=== PATIENT | male | born 1990 | race Caucasian/White ===

== ENCOUNTER 2017-12-25 00:36 | Emergency (ER) | payer BC ==
[~2017-12-25] VITALS: Ht 180.3 cm; Wt 86.4 kg
[~2017-12-25 00:36] MED LIST: ADDERALL30 MG PO; BACTRIM DS 8001 TAB PO; CEPHALEXIN500 M1 PO; DOXYCYCLINE 10100 MG PO; NORCO 325 MG-51 TAB PO; PHENERGAN W/CO120 ML PO; ZITHROMAX Z PA250 MG PO
[2017-12-25 00:44] VITALS: TEMP 97
[2017-12-25] MEDS ORDERED: MULTI VITAMINS1 TAB PO (01:46)
[2017-12-25] MEDS ORDERED: NORCO 325 MG-51 TAB PO (03:19)
[2017-12-25 03:49] VITALS: BP 143/81; PULSE 85
== END 2017-12-25 04:22 | disposition home or self-care (01) ==
LOC: COL.ER 00:36
DX: S82.851A Displaced trimalleolar fracture of right lower leg, initial encounter for closed fracture (principal); W18.39XA Other fall on same level, initial encounter; Y93.41 Activity, dancing
CPT/HCPCS: J1885; J2704; J3010; J7030

== ENCOUNTER → 2017-12-30 | Outpatient (CLI) | payer BC ==
[~2017-12-30] MED LIST changes: +MULTI VITAMINS1 TAB PO
== END ==
LOC: COL.RAD 09:30
DX: Z01.818 Encounter for other preprocedural examination (principal); S82.851A Displaced trimalleolar fracture of right lower leg, initial encounter for closed fracture